=== PATIENT | male | born 1975 | race Caucasian/White ===

== ENCOUNTER 2020-11-13 13:35 | Inpatient (IN) | payer BC ==
[~2020-11-13] VITALS: Ht 182.9 cm; Wt 93.0 kg
[2020-11-13 15:28] LABS: HEMOGLOBIN 16.9 gm/dl (14.0-17.5); RED BLOOD COUNT 5.46 M/UL (4.20-5.50); WHITE BLOOD COUNT 5.7 K/UL (4.5-11.0)
[2020-11-13 16:10] LABS: BUN/CREATININE RATIO 19 (0-10)
[2020-11-14 06:01] LABS: HEMOGLOBIN 17.4 gm/dl (14.0-17.5); RED BLOOD COUNT 5.69 M/UL (4.20-5.50)
[2020-11-14 06:03] LABS: WHITE BLOOD COUNT 4.1 K/UL (4.5-11.0)
[2020-11-14 08:50] LABS: BUN/CREATININE RATIO 21 (0-10)
[2020-11-16 05:24] LABS: HEMOGLOBIN 16.7 gm/dl (14.0-17.5); RED BLOOD COUNT 5.47 M/UL (4.20-5.50); WHITE BLOOD COUNT 5.3 K/UL (4.5-11.0)
[2020-11-16 05:28] LABS: BUN/CREATININE RATIO 30 (0-10)
[2020-11-18 05:00] LABS: BUN/CREATININE RATIO 36 (0-10)
[2020-11-18] MEDS ORDERED: COMBIVENT RESPIM4 GM INH (12:18)
[2020-11-18] MEDS ORDERED: DECADRON6 MG PO (12:18)
== END 2020-11-18 14:47 | disposition home or self-care (01) | DRG 177 ==
LOC: ER1 13:35 → MED SURG 4 17:06 → CDU 17:06 → MED SURG 4 11-14 01:46
PROVIDERS: Internal Medicine; Physician Assistant; ADMIT Internal Medicine
PROC: XW033E5 Introduction of Remdesivir Anti-infective into Peripheral Vein, Percutaneous Approach, New Technology Group 5 (ICD-10-PCS; principal; 2020-11-13)
PROC: 8E0ZXY6 Isolation (ICD-10-PCS; 2020-11-13)
PROC: XW13325 Transfusion of Convalescent Plasma (Nonautologous) into Peripheral Vein, Percutaneous Approach, New Technology Group 5 (ICD-10-PCS; 2020-11-13)
PROC: 5A0945A Assistance with Respiratory Ventilation, 24-96 Consecutive Hours, High Flow/Velocity Cannula (ICD-10-PCS; 2020-11-13)
PROC: XW033H5 Introduction of Tocilizumab into Peripheral Vein, Percutaneous Approach, New Technology Group 5 (ICD-10-PCS; 2020-11-13)
PROC: 3E0333Z Introduction of Anti-inflammatory into Peripheral Vein, Percutaneous Approach (ICD-10-PCS; 2020-11-13)
DX: U07.1 COVID-19 (principal); J96.01 Acute respiratory failure with hypoxia; J12.82 Pneumonia due to coronavirus disease 2019; D72.819 Decreased white blood cell count, unspecified; Z83.3 Family history of diabetes mellitus; Z82.49 Family history of ischemic heart disease and other diseases of the circulatory system; Z99.81 Dependence on supplemental oxygen
CPT/HCPCS: 36415; 36600; 71045; 80048; 80053; 82550; 82553; 82728; 82803; 83036; 83615; 83735; 83874; 83880; 84443; 84484; 85025; 85379; 86140; 86900; 86901; 86927; 93005; 94640; 94664; 94760; 96374; 99285; J1100; J1650; J7030; J7050; U0002

== ENCOUNTER → 2020-12-18 | Outpatient (CLI) | payer BC ==
[~2020-12-18] MED LIST: COMBIVENT RESPIM4 GM INH; DECADRON6 MG PO
== END ==
LOC: EXRD 15:08
DX: Z09 Encounter for follow-up examination after completed treatment for conditions other than malignant neoplasm (principal); Z86.16 Personal history of COVID-19
CPT/HCPCS: 71046